=== PATIENT | male | born 1940 | race Caucasian/White ===

== ENCOUNTER 2019-04-14 09:22 | Emergency (ER) | payer OTHER ==
[~2019-04-14] VITALS: Ht 180.3 cm; Wt 72.6 kg
[2019-04-14 09:32] VITALS: BP_SYST 124
--- NOTE | 2019-04-14 09:33 | NUR ---
Patient BIBA from home c/o feeling lightheaded and dizzy that started about a half hour ago. Patient AAOx4 and denies any nausea, vomiting, or dizziness at this time. Patient reports history of HTN and high cholesterol and double bypass surgery with stent placement years ago. Respirations even and unlabored, no signs or symptoms of acute distress noted.
--- NOTE | 2019-04-14 09:39 | NUR ---
PATIENT PRESENTS TO THE ER WITH HX OF DIZZINESS TODAY AT 0830 UPON SITTING UP FROM BED; NO TRAUMA, NO OTHER REMARKABLE S/S; CALLED 911 AND PATIENT BROUGHT TO ER ACLS; PATIENT TO ER #[id number] AT 0920
--- NOTE | 2019-04-14 09:42 | NUR ---
ER Dr. Fernando at bedside examining patient.
--- NOTE | 2019-04-14 10:05 | NUR ---
Radiology at bedside for CXR.
[2019-04-14 10:36] LABS: BASOPHILS % (AUTO) 0.5 % (0.0-2.0); EOSINOPHILS % (AUTO) 0.3 % (0.0-4.0); HEMATOCRIT 40.7 % (36-54); HEMOGLOBIN 13.7 g/dL (14.0-18.0); LYMPHOCYTES # (AUTO) 0.5 K/uL (1.0-5.5); LYMPHOCYTES % (AUTO) 12.4 % (20.5-51.5); MEAN CORPUSCULAR HEMOGLOBIN 35 pg (27-31); MEAN CORPUSCULAR HGB CONC 34 % (32-36); MEAN CORPUSCULAR VOLUME 104 fL (79.0-98.0); MONOCYTES # (AUTO) 0.3 K/uL (0.0-1.0); NEUTROPHILS # (AUTO) 2.9 K/uL (1.8-7.7); NEUTROPHILS % (AUTO) 77.8 % (40.0-70.0); PLATELET COUNT (AUTO) 172 K/uL (130-430); RED BLOOD CELL COUNT(AUTO) 3.93 MIL/uL (4.2-6.2); RED CELL DISTRIBUTION WIDTH 12.3 % (9.0-15.0)
[2019-04-14 10:39] LABS: WHITE BLOOD COUNT (AUTO) 3.8 K/uL (4.8-10.8)
[2019-04-14 10:40] LABS: ANION GAP 3 (5-15); CALCIUM 8.9 mg/dL (8.4-11.0); CHLORIDE 98 mmol/L (98-107); CREATININE 0.74 mg/dL (0.55-1.30); GLUCOSE 122 mg/dL (70-99); POTASSIUM 3.9 mmol/L (3.5-5.1); SODIUM SERUM 130 mmol/L (136-145); UREA NITROGEN, BLOOD 11 mg/dL (8-21)
[2019-04-14 10:45] LABS: ALANINE AMINOTRANSFERASE 25 U/L (12-78); ALBUMIN 3.6 g/dL (3.4-4.8); ASPARTATE AMINOTRANSFERASE 12 U/L (10-37); TOTAL BILIRUBIN 1.4 mg/dL (0.0-1.0)
--- NOTE | 2019-04-14 11:56 | NUR ---
Patient and spouse given written and verbal discharge instructions and verbalizes understanding. ER MD discussed with patient the results and treatment provided. Patient in stable condition. ID arm band removed. Patient educated on pain management and to follow up with PMD. Pain Scale 0. Opportunity for questions provided and answered. Medication side effect fact sheet provided. patient preferred to walk toward the car. accompanied by staff.
[2019-04-14 12:08] VITALS: BP_SYST 109
== END 2019-04-14 11:59 | disposition home or self-care (01) ==
LOC: SED 09:22
DX: R55 Syncope and collapse (principal); I10 Essential (primary) hypertension
CPT/HCPCS: 36415; 71045; 80053; 82550-TC; 83880; 84484; 85025; 93005; 99284